=== PATIENT | male | born 1945 | race Caucasian/White ===

== ENCOUNTER → 2017-08-13 | Outpatient (CLI) | payer MEDICARE | LOC: RAD 08:28 | DX: C22.0 Liver cell carcinoma (principal) ==

== ENCOUNTER → 2017-09-01 | Outpatient (CLI) | payer MEDICARE, BC ==
[~2017-09-01] MED LIST: ATENOLOL50 MG; HUMULIN N100 UNITS/; HUMULIN R100 UNITS/; LISINOPRIL 5MG T5 MG
--- NOTE | 2017-09-01 15:29 | RADIOLOGY REPORT PS360 ---
ARTERIAL/[id number] ULCERS, bilateral feet ulcers with rest pain ORDERING PHYSICIAN: ADELA MARCUS DPM PATIENT AGE: 71 years TECHNIQUE: Segmental pressures obtained of both right and left leg. These are compared to brachial blood pressure to yield index at each level sampled including summary EKATERINA. The data sheets from the procedure are available in PACS FINDINGS Rest study only performed today No prior studies available for comparison. Blood pressures reported are in millimeters mercury. RIGHT LEG EKATERINA = 1.0. Right TBI= 0.7 Brachial BP: 161 Thigh BP: 185 Calf BP: 168 Ankle PT: 176 Ankle DP : Noncompressible Digit =125 LEFT LEG EKATERINA = 1.0 Left TBI =0.8 Brachial BPD: 168 Thigh BP: 174 Calf BP: 160 Ankle PT:191 Ankle DP: 181 Digit = 136 Pulses and waveforms: Normal IMPRESSION: The ABIs andTBIs as reported above are within normal limits. Waveforms and pulses are also unremarkable.
== END ==
LOC: RT 13:39
DX: E11.621 Type 2 diabetes mellitus with foot ulcer (principal); I70.213 Atherosclerosis of native arteries of extremities with intermittent claudication, bilateral legs